=== PATIENT | male | born 1995 | race American Indian/Alaskan Native ===

== ENCOUNTER 2019-01-30 16:04 | Emergency (ER) | payer OTHER ==
--- NOTE | 2019-01-30 16:27 | Event Note ---
ED Screening Note ED Screening Note: pt presents with dysuria, penile discharge for two days no testicular pain or edema states that he had unprotected intercourse with someone who had G/C STD hx: chlamydia 2 years ago no PMHx no allergies to meds This initial assessment/diagnostic orders/clinical plan/treatment(s) is/are subject to change based on patients health status, clinical progression and re- assessment by fellow clinical providers in the ED. Further treatment and workup at subsequent clinical providers discretion. Patient/guardian urged not to elope from the ED as their condition may be serious if not clinically assessed and managed. Initial orders include: UA, G/C
[2019-01-30 16:29] VITALS: BP 142/90
[2019-01-30 17:41] LABS: Bacteria,Urine 4+ /HPF (Negative); Bilirubin,Urine NEG (Negative); Blood,Urine NEG (Negative); Color,Urine Amber (Yellow); Mucus,Urine 3+ /HPF; Sperm,Urine 3+ /HPF (NP)
[2019-01-30 17:45] LABS: WBC,Urine > 182.0 /HPF (0.0-6.0)
[2019-01-30] MEDS ORDERED: ROCEPHIN IM ONE (17:48)
[2019-01-30] MEDS ORDERED: XYLOCAINE 1% MPF 5 mL INFILTRATI ONE (17:48)
[2019-01-30] MEDS ORDERED: ZITHROMAX PO ONE (17:48)
--- NOTE | 2019-01-30 17:49 | Emergency Department Report ---
Chief Complaint: Urogenital-Male Stated Complaint: BURNING/DISCHARGE Time Seen by Provider: 01/30/19 16:24 - HPI History of Present Illness: This is a 23-year-old male presents to ED complaining of penile discharge and dysuria 2 days. Patient states that his girlfriend was evaluated here and was tested positive for gonorrhea and chlamydia which she was treated for here. Patient states that she told him that she was treated for coronary chlamydia and he admitted to go the tested. He denies testicular pain or swelling or lesions - ROS Review of Systems: As noted in HPI. - Exam Vital Signs: Vital Signs 01/30/19 16:26 Temperature 97.6 F Pulse Rate 76 Respiratory 16 Rate Blood Pressure 142/90 [Left] O2 Sat by Pulse 98 Oximetry Physical Exam: General: Patient is in no acute distress alert and oriented 3. MSE screening note: Focused history and physical exam performed. Due to findings the following was ordered: ED Medical Decision Making - Medical Decision Making 23-year-old male presents with STD exposure. ED course: Urinalysis completely in ED. Patient received 250 mg of Rocephin, azithromycin 1 g Discussed with patient STD due to exposure and safe sex methods. Discussed with patient treatment in the ED today for gonorrhea and chlamydia. I discussed the patient still is to follow up with the health department to be tested or [facility] Discussed treatment patient is to abstain from sex 7-10 days as treatment. Discussed the follow-up with the health department for further STD testing. Patient's alert and oriented times 3. Vital signs are normal patient is in no acute discharge. Patient will be discharged home with instructions. . ED Disposition for MSE Clinical Impression: Exposure to STD Disposition: DC-01 TO HOME OR SELFCARE Is pt being admited?: No Does the pt Need Aspirin: No Condition: Stable Instructions: Sexually Transmitted Diseases in Adolescents (ED), Safe Sex (ED) Additional Instructions: Make sure to follow up with the primary care physician as discussed. If you have any worsening symptoms or develop new symptoms please return to ED immediately. Referrals: REINA MERINO MD [Primary Care Provider] - 3-5 Days [facility] [Outside] - 3-5 Days [facility] [Outside] - 3-5 Days Forms: Accompanied Note, Work/School Release Form(ED) Time of Disposition: 17:49
== END 2019-01-30 18:02 | disposition home or self-care (01) ==
LOC: ED 16:04
DX: R36.9 Urethral discharge, unspecified (principal); R30.0 Dysuria; Z20.2 Contact with and (suspected) exposure to infections with a predominantly sexual mode of transmission
CPT/HCPCS: 81001; 96372; 99283; J0696

== ENCOUNTER 2019-07-01 21:48 | Emergency (ER) | payer SELFPAY ==
[2019-07-01 22:39] VITALS: BP 116/76
== END 2019-07-02 02:43 | disposition left against medical advice (07) ==
LOC: ED 21:48
DX: R36.9 Urethral discharge, unspecified (principal); Z53.21 Procedure and treatment not carried out due to patient leaving prior to being seen by health care provider